=== PATIENT | female | born 1960 | race Hispanic/Latino ===

== ENCOUNTER 2019-03-23 11:19 | Emergency (ER) | payer OTHER ==
--- OUTSIDE RECORDS SUMMARY | 2019-03-23 11:26 | XMS REPORT ---
:1960 Author Organization eClinicalWorks Care Team Providers Name Role Phone Brigette Hernandez Provider Role Unavailable Allergies, Adverse Reactions, Alerts Substance Reaction Event Type N.K.D.A. Info Not Available Non Drug Allergy Problems Problem Type Condition Code Onset Dates Condition Status Assessment Right leg pain M79.604 Active Assessment Upper respiratory symptom R09.89 Active Problem Pain in right knee M25.561 Active Problem Other chronic pain G89.29 Active Problem Right leg pain M79.604 Active Assessment Dysuria R30.0 Active Assessment Acute UTI N39.0 Active Problem Vitamin D deficiency E55.9 Active Medications Medication Code Code Instructions Start End Status Dosage System Date Date Diflucan ND 38849599647 150 MG Orally Aug 09, Active as tablet now; 2018 directed then repeat after completing abx. Multivitamin [facility] [place] 2] 09175093428 - Orally once a Active 1 tablet Adult day Calcium [facility] [place]NOTE 2] [address]-58 150 MG Orally Active not defined Ciprofloxacin ND 99532798246 500 MG Orally Aug 09Aug Active 1 tablet HCl every 12 hrs 2017 Results Name Result Date Reference Range Unit Abnormality Flag Urine Dip Stick ----SP. Gr 1.020 20180809 ----pH 7.0 20180809 ----Ketone Negative 20180809 ----Glucose Negative 20180809 ----Blood 2+ 20180809 ----Protein 2+ 20180809 ----Nitrite Negative 20180809 ----Leukocytes 2+ 20180809 Summary Purpose eClinicalWorks Submission
--- OUTSIDE RECORDS SUMMARY | 2019-03-23 11:26 | XMS REPORT ---
:1960 Author Organization eClinicalWorks Care Team Providers Name Role Phone JoseBrigette john Provider Role Unavailable Allergies, Adverse Reactions, Alerts Substance Reaction Event Type N.K.D.A. Info Not Available Non Drug Allergy Problems Problem Type Condition Code Onset Dates Condition Status Problem Pain in right knee M25.561 Active Problem Constipation, unspecified K59.00 Active constipation type Problem Right leg pain M79.604 Active Problem Right-sided low back pain without M54.5 Active sciatica, unspecified chronicity Problem Difficulty sleeping G47.9 Active Problem Bilateral impacted cerumen H61.23 Active Problem Anxiety F41.9 Active Problem Right ankle swelling M25.471 Active Problem Stress F43.9 Active Problem Left ankle swelling M25.472 Active Assessment Abnormal urine odor R82.90 Active Assessment Urinary frequency R35.0 Active Assessment Acute UTI N39.0 Active Assessment Right leg pain M79.604 Active Assessment Bilateral impacted cerumen H61.23 Active Problem Vitamin D deficiency E55.9 Active Assessment Right-sided low back pain without M54.5 Active sciatica, unspecified chronicity Problem Other chronic pain G89.29 Active Medications Medication Code Code Instructions Start End Status Dosage System Date Date Diflucan [facility] 10346636929 150 MG Orally Aug 09, Active as tablet now; 2017 directed then repeat after completing abx. Calcium [facility] [address]-81 150 MG Orally Active not defined Multivitamin ND 08660781848 - Orally once a Active 1 tablet Adult day BusPIRone HCl ND 43876251883 7.5 MG Orally November Active 1 tablet Twice a day as 2018 needed for anxiety Ciprofloxacin ND 63252097838 500 MG Orally January 13January Active 1 tablet HCl every 12 hrs 2018 [place] ND 77805139836 15 MG Orally January 10January Active 1/2 to 1 Once a day 2018 30, tablet as 2019 needed for pain; max of 15 mg per day; take with food Results Name Result Date Reference Range Unit Abnormality Flag Urine Dip Stick ----Appearance Yellow & Clear 20190109 ----SP. Gr 1,015 20190109 ----pH 7.0 20190109 ----Ketone Negative 20190109 ----Glucose Negative 20190109 ----Blood 2+ 20190109 ----Protein Negative 20190109 ----Nitrite Negative 20190109 ----Leukocytes 1+ 20190109 Summary Purpose eClinicalWorks Submission
--- OUTSIDE RECORDS SUMMARY | 2019-03-23 11:26 | XMS REPORT ---
:1960 Author Organization eClinicalWorks Care Team Providers Name Role Phone Brigette Hernandez Provider Role Unavailable Allergies No Known Allergies Problems Problem Type Condition Code Onset Dates Condition Status Problem Pain in right knee M25.561 Active Problem Other chronic pain G89.29 Active Problem Right leg pain M79.604 Active Assessment Acute UTI N39.0 Active Problem Vitamin D deficiency E55.9 Active Medications Medication Code Code Instructions Start End Status Dosage System Date Date Multivitamin [facility] 63292405962 - Orally once Active 1 tablet Adult a day Diflucan [facility] 77616356839 150 MG Orally Aug 09, Active as 1 tablet now; 2017 directed then repeat after completing abx. Bactrim DS [facility] 78777628734 800-160 MG Aug 14Aug Active 1 tablet Orally Twice a 2018 Ciprofloxacin ND 46698577779 500 MG Orally Aug 09Aug Inactive 1 tablet HCl every 12 hrs [address] [facility] [address]-65 150 MG Orally Active not defined Results No Known Results Summary Purpose eClinicalWorks Submission
--- OUTSIDE RECORDS SUMMARY | 2019-03-23 11:26 | XMS REPORT ---
:1960 Author Organization eClinicalWorks Care Team Providers Name Role Phone Brigette Hernandez Provider Role Unavailable Allergies No Known Allergies Problems Problem Type Condition Code Onset Dates Condition Status Problem Pain in right knee M25.561 Active Problem Constipation, unspecified K59.00 Active constipation type Problem Right leg pain M79.604 Active Problem Vitamin D deficiency E55.9 Active Problem Other chronic pain G89.29 Active Problem Right-sided low back pain without M54.5 Active sciatica, unspecified chronicity Problem Difficulty sleeping G47.9 Active Problem Bilateral impacted cerumen H61.23 Active Problem Anxiety F41.9 Active Problem Right ankle swelling M25.471 Active Problem Stress F43.9 Active Problem Left ankle swelling M25.472 Active Medications No Known Medications Results No Known Results Summary Purpose eClinicalWorks Submission
--- OUTSIDE RECORDS SUMMARY | 2019-03-23 11:26 | XMS REPORT ---
:1960 Author Organization eClinicalWorks Care Team Providers Name Role Phone Brigette Hernandez Provider Role Unavailable Allergies, Adverse Reactions, Alerts Substance Reaction Event Type N.K.D.A. Info Not Available Non Drug Allergy Problems Problem Type Condition Code Onset Dates Condition Status Problem Vitamin D deficiency E55.9 Active Problem Pain in right knee M25.561 Active Problem Other chronic pain G89.29 Active Problem Right ankle swelling M25.471 Active Problem Constipation, unspecified K59.00 Active constipation type Problem Left ankle swelling M25.472 Active Problem Anxiety F41.9 Active Problem Right leg pain M79.604 Active Problem Difficulty sleeping G47.9 Active Problem Stress F43.9 Active Assessment Right ankle swelling M25.471 Active Assessment Left ankle swelling M25.472 Active Assessment Difficulty sleeping G47.9 Active Assessment Stress F43.9 Active Assessment Vitamin D deficiency E55.9 Active Assessment Anxiety F41.9 Active Assessment Constipation, unspecified K59.00 Active constipation type Medications Medication Code Code Instructions Start End Status Dosage System Date Date Calcium [facility] [address]-42 150 MG Orally Active not defined Multivitamin [facility] 50767781737 - Orally once a Active 1 tablet Adult day BusPIRone HCl ND 58390605435 7.5 MG Orally November Active 1 tablet Twice a day as 2018 needed for anxiety Diflucan ND 16233092744 150 MG Orally Aug 09, Active as tablet now; 2017 directed then repeat after completing abx. Results No Known Results Summary Purpose Syndero Submission
--- OUTSIDE RECORDS SUMMARY | 2019-03-23 11:26 | XMS REPORT ---
:1960 Author Organization eClinicalWorks Care Team Providers Name Role Phone Brigette Hernandez Provider Role Unavailable Allergies, Adverse Reactions, Alerts Substance Reaction Event Type N.K.D.A. Info Not Available Non Drug Allergy Problems Problem Type Condition Code Onset Dates Condition Status Assessment Hematuria, unspecified R31.9 Active Assessment Fatigue, unspecified type R53.83 Active Problem Vitamin D deficiency E55.9 Active Assessment Nocturia R35.1 Active Assessment Urinary tract infection, site not N39.0 Active specified Assessment Muscle cramps R25.2 Active Assessment Vitamin D deficiency E55.9 Active Medications Medication Code Code Instructions Start End Status Dosage System Date Date Multivitamin [facility] [address] - Orally once a Active 1 tablet Adult day Fluconazole [facility] 38242288000 150 MG Orally 1 Apr 03Mar Active as tablet now, 2018 , directed then repeat 2018 after completing abx. Calcium [facility] [address]-72 150 MG Orally Active not defined Ciprofloxacin [facility] 44668226530 500 MG Orally Apr 03Mar Active 1 tablet HCl every 12 hrs 2017 Vitamin D [facility] 58764427381 51981 UNIT Apr 03Jun Active 1 capsule (Ergocalciferol) Orally Once 2017 20, weekly 2018 Results Name Result Date Reference Range Unit Abnormality Flag Urine Dip Stick ----SP. Gr 1.015 20180403 ----pH 7.5 20180403 ----Ketone Negative 20180403 ----Glucose Negative 20180403 ----Blood 1+ 20180403 ----Protein Trace 20180403 ----Nitrite Positive 20180403 ----Leukocytes Negative 20180403 Summary Purpose eClinicalWorks Submission
--- OUTSIDE RECORDS SUMMARY | 2019-03-23 11:26 | XMS REPORT ---
:1960 [facility] [address] [place] [address] Care Team Providers Name Role Phone Unavailable Unavailable Unavailable Problems This patient has no known problems. Allergies, Adverse Reactions, Alerts This patient has no known allergies or adverse reactions. Medications This patient has no known medications.
[2019-03-23 12:51] LABS: Bilirubin Direct 0.1 mg/dL (0-0.2); Bilirubin Total 0.4 mg/dL (0.2-1.0); Potassium 3.9 mmol/L (3.5-5.1); Protein, Total 7.9 g/dL (6.4-8.2)
[2019-03-23 12:59] LABS: Absolute Lymphocytes (CBC) 1.9 K/uL (0.7-4.9); Basophils % 0.4 % (0-1.3); Hematocrit 41.9 % (36.0-45.0); Lymphocytes % 23.8 % (15.3-44.8); MPV 8.2 fL (7.6-11.3); RBC Red Blood Cell Count 4.43 M/uL (3.86-4.86)
--- NOTE | 2019-03-23 13:54 | RAD REPORT ---
EXAM DESCRIPTION: CT - Abdomen Pelvis W Contrast - 03/23/2019 1:26 pm CLINICAL HISTORY: Abdominal pain COMPARISON: None. TECHNIQUE: Biphasic, helical CT imaging of the abdomen and pelvis was performed following 100 ml non -ionic IV contrast. No oral contrast was given. All CT scans are performed using dose optimization technique as appropriate and may include automated exposure control or mA/KV adjustment according to patient size. FINDINGS: No suspicious findings in the lung bases. The liver, spleen, and pancreas show no suspicious findings. Gallbladder and biliary tree are also wi thout suspicious finding. Symmetric renal function is seen with no hydronephrosis or suspicious renal mass. No pyelonephritis o r acute parenchymal process. Urinary bladder is only partially filled limiting assessment. No bladder calculus. No bladder wall mass or thickening seen. Uterus and ovaries show no suspicious findings. N o adrenal abnormalities. No gastric dilatation or wall thickening. There are few small nondilated but prominent small bowel lo ops. No appendicitis findings. No acute colon process seen. There is moderate stool volume present. No free air, free fluid or inflammatory stranding. No hernia, mass or bulky lymphadenopathy. No suspicious bony findings. IMPRESSION: No obstruction, free air or surgically emergent finding. Patient has a few mildly prominent but nondilated small bowel loops. Small bowel enteritis is possibl e.
--- NOTE | 2019-03-23 14:03 | ER ---
Nurse's Notes [facility] Name: Macrina Chavez Age: 58 yrs Sex: Female : 1960 Arrival Date: 03/23/2019 Time: 11:26 Bed 6 Private MD: Roland Oliva E Diagnosis: Generalized abdominal pain Presentation: 03/23 11:45 Presenting complaint: Patient states: c/o body aches, headaches, stomach aches, iw generalized weakness, decreased appetite X 3 weeks, denies fever, denies n/v/d, sone states his dad had similar symptoms and was recently diagnosed with Stage IV colon cancer. Transition of care: patient was not received from another setting of care. Onset of symptoms was March 06, 2019. Risk Assessment: Do you want to hurt yourself or someone else? Patient reports no desire to harm self or others. Initial Sepsis Screen: Does the patient meet any 2 criteria? No. Patient's initial sepsis screen is negative. Does the patient have a suspected source of infection? No. Patient's initial sepsis screen is negative. Care prior to arrival: None. 11:45 Method Of Arrival: Ambulatory iw 11:45 Acuity: ROMINA 3 iw Historical: - Allergies: 11:49 No Known Allergies; iw - Home Meds: 11:49 paroxetine oral oral [Active]; iw - PMHx: 11:49 None; iw - PSHx: 11:49 None; iw - Immunization history:: Adult Immunizations up to date. - Social history:: Smoking status: Patient/guardian denies using tobacco. - Ebola Screening: : Patient negative for fever greater than or equal to 101.5 degrees Fahrenheit, and additional compatible Ebola Virus Disease symptoms Patient denies exposure to infectious person Patient denies travel to an Ebola-affected area in the 21 days before illness onset No symptoms or risks identified at this time. Screenin:17 Abuse screen: Denies threats or abuse. Denies injuries from another. Nutritional jl7 screening: No deficits noted. Tuberculosis screening: No symptoms or risk factors identified. Fall Risk IV access (20 points). Total West Fall Scale indicates No Risk (0-24 pts). Assessment: 12:30 General: Appears in no apparent distress. uncomfortable, Behavior is calm, cooperative, jl7 appropriate for age. Pain: Complains of pain in "All over" Pain currently is 2 out of 10 on a pain scale. at worst was 10 out of 10 on a pain scale. Quality of pain is described as aching, Pain began a month ago Is intermittent. Neuro: Level of Consciousness is awake, alert, obeys commands, Oriented to person, place, time, situation. Cardiovascular: Patient's skin is warm and dry. Respiratory: Airway is patent Respiratory effort is even, unlabored, Respiratory pattern is regular, symmetrical. GI: Abdomen is round non-distended, Bowel sounds present X 4 quads. Abd is soft. : No signs and/or symptoms were reported regarding the genitourinary system. EENT: No signs and/or symptoms were reported regarding the EENT system. Derm: Skin is pink, warm \\T\\ dry. 13:30 Reassessment: Patient appears in no apparent distress at this time. No changes from jl7 previously documented assessment. Patient and/or family updated on plan of care and expected duration. Pain level reassessed. Patient is alert, oriented x 3, equal unlabored respirations, skin warm/dry/pink. Vital Signs: 11:49 BP 124 / 69; Pulse 67; Resp 16; Temp 98.2; Pulse Ox 100% ; Weight 66.22 kg; Height 5 iw ft. 2 in. (157.48 cm); Pain 7/10; 12:50 BP 111 / 77; Pulse 71; Resp 16 S; Pulse Ox 100% on R/A; jl7 14:05 BP 120 / 75; Pulse 70; Resp 16 S; Pulse Ox 100% on R/A; jl7 11:49 Body Mass Index 26.70 (66.22 kg, 157.48 cm) ED Course: 11:26 Patient arrived in ED. ag5 11:27 Roland Oliva MD is Private Physician. ag5 11:37 [facility]el Eagle [facility] 11:37 Cleve Williamson MD is Attending Physician. [facility] 11:38 Jossy Roach, RICHAR is Primary Nurse. jl7 11:49 Triage completed. iw 11:49 Arm band placed on. iw 11:57 Radiology exam delayed due to lab results not completed at this time. (BUN/Creatinine). mw3 13:05 Lab(s) recollected, by me, sent to lab. Inserted saline lock: 22 gauge in right jl7 forearm, using aseptic technique. Blood collected. 13:17 Patient has correct armband on for positive identification. Placed in gown. Bed in low jl7 position. Call light in reach. Side rails up X 1. Pulse ox on. NIBP on. Warm blanket given. 13:26 CT completed. Patient tolerated procedure well. Patient moved back from CT. mw3 13:30 CT Abd/Pelvis - IV Contrast Only In Process Unspecified. EDMS 14:01 Roland Barfield MD is Referral Physician. [facility] 14:18 No provider procedures requiring assistance completed. IV discontinued, intact, jl7 bleeding controlled, No redness/swelling at site. Pressure dressing applied. Administered Medications: No medications were administered Outcome: 14: Discharge ordered by . [facility] 14:18 Discharged to home ambulatory. jl7 14:18 Condition: stable 14:18 Discharge instructions given to patient, family, Instructed on discharge instructions, follow up and referral plans. medication usage, Demonstrated understanding of instructions, follow-up care, medications, Prescriptions given X 1. 14:18 Patient left the ED. jl7 Signatures: Dispatcher [employer] EDMS Romel Eagle PA PA Jillian Low, RICHAR MCQUEEN iw Jossy Roach RN RN jl7 Rachel Granados mw3 Rosangela Draper 5
--- NOTE | 2019-03-23 14:03 | EDPHYS ---
Physician Documentation [facility] Name: Macrina Chavez Age: 58 yrs Sex: Female : 1960 Arrival Date: 03/23/2019 Time: 11:26 Bed 6 Private MD: Roland Oliva E ED Physician Cleve Williamson HPI: 03/23 11:52 This 58 yrs old Female presents to ER via Ambulatory with complaints of jmm Abdominal Pain, Decreased Appetite, Leg Pain. 11:52 The patient presents with abdominal pain that is diffuse. Onset: The symptoms/episode jmm began/occurred gradually, 3 week(s) ago. The symptoms do not radiate. Associated signs and symptoms: Pertinent positives: constipation, decreased appetite, Pertinent negatives: nausea and vomiting, diarrhea. This is a 58 year old female with no chronic medical conditions that presents to the ED with complaints of abdominal pain, decreased appetite, cramping which has been ongoing over the past 3 weeks. Patient was evaluated by Dr. Oliva with normal lab findings and prescribed an antidepressant. Patient continues have pain. . Historical: - Allergies: 11:49 No Known Allergies; iw - Home Meds: 11:49 paroxetine oral oral [Active]; iw - PMHx: 11:49 None; iw - PSHx: 11:49 None; iw - Immunization history:: Adult Immunizations up to date. - Social history:: Smoking status: Patient/guardian denies using tobacco. - Ebola Screening: : Patient negative for fever greater than or equal to 101.5 degrees Fahrenheit, and additional compatible Ebola Virus Disease symptoms Patient denies exposure to infectious person Patient denies travel to an Ebola-affected area in the 21 days before illness onset No symptoms or risks identified at this time. ROS: 11:52 Constitutional: Negative for fever, chills, and weight loss, Cardiovascular: Negative jmm for chest pain, palpitations, and edema, Respiratory: Negative for shortness of breath, cough, wheezing, and pleuritic chest pain. 11:52 Abdomen/GI: Positive for abdominal pain, constipation. 11:52 All other systems are negative. Exam: 11:52 Constitutional: This is a well developed, well nourished patient who is awake, alert, jmm and in no acute distress. Head/Face: atraumatic. Eyes: EOMI, no conjunctival erythema appreciated ENT: Moist Mucus Membranes Neck: Trachea midline, Supple Chest/axilla: Normal chest wall appearance and motion. Cardiovascular: Regular rate and rhythm. No edema appreciated Respiratory: Normal respirations, no respiratory distress appreciated 11:52 Back: Normal ROM Skin: General appearance color normal MS/ Extremity: Moves all extremities, no obvious deformities appreciated, no edema noted to the lower extremities Neuro: Awake and alert, normal gait Psych: Behavior is normal, Mood is normal, Patient is cooperative and pleasant 11:52 Abdomen/GI: Inspection: abdomen appears normal, Bowel sounds: normal, Palpation: abdomen is soft and non-tender, in all quadrants. Vital Signs: 11:49 BP 124 / 69; Pulse 67; Resp 16; Temp 98.2; Pulse Ox 100% ; Weight 66.22 kg; Height 5 iw ft. 2 in. (157.48 cm); Pain 7/10; 12:50 BP 111 / 77; Pulse 71; Resp 16 S; Pulse Ox 100% on R/A; jl7 14:05 BP 120 / 75; Pulse 70; Resp 16 S; Pulse Ox 100% on R/A; jl7 11:49 Body Mass Index 26.70 (66.22 kg, 157.48 cm) iw MDM: 11:52 Patient medically screened. julien 14:00 Data reviewed: vital signs, nurses notes. Counseling: I had a detailed discussion with ary the patient and/or guardian regarding: the historical points, exam findings, and any diagnostic results supporting the discharge/admit diagnosis, lab results, radiology results, the need for outpatient follow up, to return to the emergency department if symptoms worsen or persist or if there are any questions or concerns that arise at home. ED course: Patient is alert and non toxic in appearance in the ED. Patient advised to follow up with GI and otherwise advised to return to the ED if symptoms worsen. Patient understood and agrees with the plan of care. . 03/23 11:53 Order name: Basic Metabolic Panel; Complete Time: 13:02 [facility] 03/23 11:53 Order name: CBC with Diff; Complete Time: 13:02 [facility] 03/23 11:53 Order name: Creatinine for Radiology; Complete Time: 13:02 [facility] 03/23 11:53 Order name: Hepatic Function; Complete Time: 13:02 [facility] 03/23 11:53 Order name: Lipase; Complete Time: 13:02 [facility] 03/23 11:53 Order name: CT Abd/Pelvis - IV Contrast Only; Complete Time: 13:59 [facility] 03/23 11:53 Order name: IV Saline Lock; Complete Time: 12:51 [facility] 03/23 11:53 Order name: Labs collected and sent; Complete Time: 12:51 [facility] Administered Medications: No medications were administered Disposition: 03/24 10:05 Co-signature as Attending Physician, Cleve Williamson MD I agree with the assessment and julien plan of care. Disposition: 03/23/19 14:01 Discharged to Home. Impression: Generalized abdominal pain. - Condition is Stable. - Discharge Instructions: Abdominal Pain, Adult. - Prescriptions for Bentyl 20 mg Oral Tablet - take 1 tablet by ORAL route every 6 hours As needed; 20 tablet. - Medication Reconciliation Form, Thank You Letter, Antibiotic Education, Prescription Opioid Use form. - Follow up: Roland Barfield MD; When: 2 - 3 days; Reason: Recheck today's complaints, Continuance of care, Re-evaluation by your physician. Signatures: Dispatcher [employer] EDCleve Vega MD MD cha Mickail, Joel, PA PA Jillian Low, RICHAR MCQUEEN iw Jossy Roach RN RN jl7 Corrections: (The following items were deleted from the chart) 03/23 14:18 14:01 03/23/2019 14:01 Discharged to Home. Impression: Generalized abdominal pain. jl7 Condition is Stable. Forms are Medication Reconciliation Form, Thank You Letter, Antibiotic Education, Prescription Opioid Use. Follow up: Roland Barfield; When: 2 - 3 days; Reason: Recheck today's complaints, Continuance of care, Re-evaluation by your physician. [facility]
== END 2019-03-23 14:18 | disposition home or self-care (01) ==
LOC: ER 11:19
DX: R10.84 Generalized abdominal pain (principal)
CPT/HCPCS: 85025; 80048; 36415; 80076; 83690; 74177; 99284; Q9967